=== PATIENT | female | born 1945 | race Caucasian/White ===

== ENCOUNTER 2020-08-09 18:50 | Emergency (ER) | payer OTHER ==
[~2020-08-09] VITALS: Ht 154.9 cm; Wt 64.0 kg
[2020-08-09] MEDS ORDERED: ALPRAZOLAM2 M2 PO (19:18)
[2020-08-09] MEDS ORDERED: ALPRAZOLAM1 MG PO (19:18)
[2020-08-09 19:37] LABS: ABSOLUTE NEUTROPHILS 3.6 thou/uL (1.4-8.2); BASOPHILS 0.9 % (0.0-2.0); EOSINOPHILS 2.6 % (0.0-3.0); HEMATOCRIT 44.3 % (37.0-47.0); HEMOGLOBIN 14.8 gm/dL (12.0-15.0); LYMPHOCYTES 32.4 % (24.0-44.0); MCH 30.6 pg (26.0-34.0); MCHC 33.4 g/dL (28.0-37.0); MCV 91.6 fL (80.0-100.0); MONOCYTES 9.1 % (1.0-8.0); PLATELET COUNT 247 thou/uL (150-400); RBC 4.83 mil/uL (4.20-5.00); WBC 6.5 thou/uL (4.0-11.0)
[2020-08-09 19:43] LABS: ANION GAP 12 mmol/L (7-16); BUN 8 mg/dL (7-18); CALCIUM 9.1 mg/dL (8.5-10.1); CHLORIDE 103 mmol/L (98-107); CO2 26 mmol/L (21-32); CREATININE 0.8 mg/dL (0.6-1.0); GLUCOSE 132 mg/dL (74-106); POTASSIUM 3.7 mmol/L (3.5-5.1); SODIUM 141 mmol/L (136-145)
[2020-08-09 19:53] LABS: ALBUMIN 3.8 g/dL (3.4-5.0); SGOT 22 U/L (15-37); SGPT 29 U/L (30-65); TOTAL BILIRUBIN 0.6 mg/dL (0.2-1.0); TOTAL PROTEIN 7.4 g/dL (6.4-8.2); TROPONIN-I <0.06 ng/mL (<0.06)
[2020-08-09 20:10] LABS: URINE BILIRUBIN NEGATIVE (Negative); URINE BLOOD 1+ (Negative); URINE CLARITY CLEAR; URINE COLOR YELLOW; URINE GLUCOSE-RANDOM* NEGATIVE (Negative); URINE KETONES NEGATIVE (Negative); URINE LEUKOCYTES-REFLEX 2+ (Negative); URINE NITRITE-REFLEX NEGATIVE (Negative); URINE PROTEIN (DIPSTICK) NEGATIVE (Negative); URINE SPECIFIC GRAVITY >= 1.030 (1.005-1.035); URINE UROBILINOGEN 0.2 E.U./dl (0.2-1.0)
[2020-08-09 20:20] LABS: CASTS None Seen /LPF (None Seen); CRYSTALS None Seen /LPF (None Seen); SQUAMOUS 0-3 Few /LPF (0-3); URINE WBC-REFLEX 6-15 Few /HPF (0-5)
[2020-08-09 20:21] LABS: URINE RBC 0-2 Rare /HPF (0-2)
[2020-08-09] MEDS ORDERED: XANAX 1 MG TABLE1 MG PO (20:25)
[2020-08-09] MEDS ORDERED: KEFLEX500 M1 PO (20:25)
[2020-08-09 20:34] VITALS: BP 165/86
--- NOTE | 2020-08-10 16:43 | EKG ---
[facility] [place] [address] [address] ELECTROCARDIOGRAM REPORT Name: SHANDA ELMORE Room #: DEP [facility] [place]#: [id number] Admission: 08/09/20 Attend Phys: Discharge: 08/09/20 Date of : 45 Report #: [id number] THIS REPORT FOR: cc: [facility] - Clinic physician unknown [facility] - Clinic physician unknown Peyman Ruiz MD 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 08/10/20 1643 10 10 Peyman Ruiz MD, FACC /EPI
== END 2020-08-09 20:30 | disposition home or self-care (01) ==
LOC: ER 18:50
PROVIDERS: Emergency Medicine
DX: N39.0 Urinary tract infection, site not specified (principal); F15.93 Other stimulant use, unspecified with withdrawal; Z79.899 Other long term (current) drug therapy; Z88.5 Allergy status to narcotic agent